=== PATIENT | male | born 1930 | race Caucasian/White ===

== ENCOUNTER 2016-10-12 21:34 | Emergency (ER) | payer MEDICARE ==
[~2016-10-12] VITALS: Ht 177.8 cm; Wt 99.6 kg
[2016-10-12 22:02] VITALS: BP 118/61
[2016-10-12] MEDS ORDERED: TETANUS, DIPTHERIA, PERTUSSIS (ADACELL) VACCINE 0.5 ML VIAL IM ONE (22:10)
[2016-10-12] MEDS ORDERED: BACITRACIN OINTMENT 0.9 GM PACKET TOP ONE (22:10)
== END 2016-10-12 22:44 | disposition home or self-care (01) ==
LOC: ED 21:35
DX: S60.512A Abrasion of left hand, initial encounter (principal); W22.8XXA Striking against or struck by other objects, initial encounter; Y92.79 Other farm location as the place of occurrence of the external cause
CPT/HCPCS: 90471; 90715; 99283; A9270; 99282